=== PATIENT | female | born 1985 | race Caucasian/White ===

== ENCOUNTER 2020-02-13 11:16 | Emergency (ER) | payer OTHER, SELFPAY ==
[2020-02-13 11:24] VITALS: BP 105/67; PULSE 96; RESP 16; TEMP 37.2
--- NOTE | 2020-02-13 11:28 | ED.URI ---
HPI - URI/Sore Throat General Chief Complaint: Upper Respiratory Infection Stated Complaint: COLD SYMPTOMS Time Seen by Provider: 02/13/20 11:28 Source: patient and RN notes reviewed History of Present Illness HPI Narrative: Patient is a 34-year-old female who presents the urgent care with complaints of upper respiratory symptoms. Patient states on Monday she woke up with a runny nose, cough, congestion. Patient states that everyone in the house have like symptoms and they have all been treating with allergy medication. Patient states that everyone else seems to be improving except her. However patient was also recently diagnosed with thyroid cancer and is supposed to have her thyroid removed on the . Therefore, patient's physician suggested she be tested for COVID for rule out prior to surgery. Patient also reports of low-grade fevers, intermittent shortness of breath, and body aches. Patient denies of any known contact with coronavirus and states that she has been wearing her mask in public. Patient also works from home. No other acute complaints. No acute distress noted. Patient read the plan of care. Related Data Home Medications Medication Instructions Recorded Confirmed sertraline 100 mg tablet 100 mg PO DAILY 06/07/19 Allergies Allergy/AdvReac Type Severity Reaction Status Date / Time amoxicillin Allergy Unknown gets yeast Verified 02/13/20 11:29 infections erythromycin base Allergy Unknown Nausea Verified 02/13/20 11:29 Review of Systems Review of Systems: Narrative: CONSTITUTIONAL: Reports of fever and sweats EYES: Denies visual changes, redness, or discharge. ENT: Reports of sore throat, congestion, rhinorrhea CARDIOVASCULAR: Denies chest pain, palpitations, or edema. RESPIRATORY: Reports of nonproductive cough with intermittent dyspnea GASTROINTESTINAL: Denies abdominal pain, nausea, vomiting, or diarrhea. GENITOURINARY: Denies dysuria or hematuria. SKIN: Denies rash or itching. MUSCULOSKELETAL: Denies back pain, joint pain; reports of body aches NEUROLOGIC: Denies headache, numbness, or weakness. All other systems reviewed are negative, except as documented in HPI. [facility] Past Medical History Medical History (Updated 02/13/20 @ 11:50 by SRIRAM Herman) Depression Hemorrhoids History of Nontoxic multinodular goiter Ovarian cyst Thyroid nodule Thyrotoxicosis with diffuse goiter without thyrotoxic crisis or storm Surgical History Surgical History H/O adenoidectomy H/O section H/O myringotomy Hx of tonsillectomy Social History Social History Smoking status: Never smoker Smoking end date: 08/07/04 Alcohol intake: never Substance use type: marijuana Comments At the time of my signature, I reviewed and agree with the nursing past medical, surgical, social, and family history. There is no relevant family history pertinent to the patient complaint. Exam Narrative: Exam Narrative: GENERAL: This is a well-nourished, well-developed patient, appears fatigued HEAD: normocephalic, atraumatic. EYES: PERRL. Sclera clear/white. Vision is grossly intact. EARS: External ears normal, auditory canals clear and without drainage, TMs normal without perforation. Hearing grossly intact. NOSE: External nose normal with no obvious nasal discharge, nares without redness, clear rhinorrhea. THROAT: Mucous membranes moist, mild erythema noted posterior oropharynx with mild postnasal drainage; absent tonsils NECK: Neck supple, CARDIOVASCULAR: Regular rate and rhythm without murmurs, gallops, or rubs. RESPIRATORY: Clear to auscultation. Breath sounds equal bilaterally. No wheezes, rales, or rhonchi. SKIN: warm, intact with no suspicious lesions or rash, good texture and turgor. NEURO: awake, alert, and oriented to person, place and time. There were no obvious focal neurologic
== END 2020-02-13 11:58 | disposition home or self-care (01) ==
PROVIDERS: Emergency Provider Nurse Practitioner Family; PCP Family Medicine
DX: R05 Cough (principal); J06.9 Acute upper respiratory infection, unspecified; Z20.828 Contact with and (suspected) exposure to other viral communicable diseases; F32.9 Major depressive disorder, single episode, unspecified
CPT/HCPCS: 87081; 87880; 99213; G0463

== ENCOUNTER → 2020-02-19 14:47 | Outpatient (CLI) | payer OTHER, SELFPAY ==
--- NOTE | ~2020-02-19 | XR_ITS ---
EXAMINATION: XR chest 2V DATE: 02/19/2020 14:59 INDICATION: Cough. TECHNIQUE: Frontal and lateral views of the chest were obtained. COMPARISON: CT abdomen and pelvis 10/31/2014 FINDINGS: The chest demonstrates clear lungs without pneumonia, pleural effusion, or pneumothorax. Th e heart size is normal. IMPRESSION: 1. No acute cardiopulmonary disease. Reviewed, dictated and finalized at location A.
== END ==
PROVIDERS: PCP Family Medicine; Visit Provider Family Medicine
DX: R05 Cough (principal)
CPT/HCPCS: 71046

== ENCOUNTER 2020-06-23 06:53 | Outpatient (NON) | payer OTHER, SELFPAY ==
[2020-06-24 14:04] LABS: SARS-CoV-2 RNA PCR Negative
== END 2020-06-23 06:54 ==
LOC: ANHCOVIDDT 07:04
PROVIDERS: PCP Family Medicine; Visit Provider Family Medicine
DX: Z20.828 Contact with and (suspected) exposure to other viral communicable diseases (principal)
CPT/HCPCS: 87635; C9803; U0003

== ENCOUNTER → 2020-10-14 08:17 | Outpatient (CLI) | payer OTHER, SELFPAY ==
[2020-10-15 16:27] LABS: SARS-CoV-2 RNA PCR Negative
== END ==
PROVIDERS: PCP Family Medicine; Visit Provider Family Medicine
DX: Z20.822 Contact with and (suspected) exposure to COVID-19 (principal); J34.89 Other specified disorders of nose and nasal sinuses; R05 Cough; R53.83 Other fatigue
CPT/HCPCS: C9803; U0003; U0005

== ENCOUNTER → 2021-03-23 13:24 | Outpatient (CLI) | payer OTHER, SELFPAY ==
--- NOTE | ~2021-03-23 | MM_ITS ---
EXAMINATION: MM screening pedro BI w june HISTORY: Screening mammogram, family history of breast cancer in her mother. TECHNIQUE: Craniocaudal and mediolateral oblique 3-D tomosynthesis images were obtained and synthetic 2-D images were generated. CAD analysis was submitted and interpreted. COMPARISON: None, baseline BREAST PARENCHYMAL COMPOSITION: The breasts are heterogeneously dense, which may obscure small masses . FINDINGS: RIGHT BREAST: A focal asymmetry and mass with an appearance suggestive of an intramammary lymph node are present in the posterior third of the upper outer quadrant breast. LEFT BREAST: There is no evidence of suspicious mass, calcification, or architectural distortion to s uggest malignancy. IMPRESSION: 1. Right breast focal asymmetry and mass 2. Additional mammographic views and possible breast ultrasound are recommended to evaluate for malig jose and establish a baseline given that this is the first mammographic examination. BI-RADS Category 0: Incomplete: Needs additional imaging evaluation. Reviewed, dictated and finalized at location A. IMPRESSION: 1. Right breast focal asymmetry and mass 2. Additional mammographic views and possible breast ultrasound are recommended to evaluate for malignancy and establish a baseline given that this is the fir st mammographic examination. BI-RADS Category 0: Incomplete: Needs additional imaging evaluation.
== END ==
PROVIDERS: PCP Family Medicine; Visit Provider Family Medicine
DX: Z12.31 Encounter for screening mammogram for malignant neoplasm of breast (principal); R92.8 Other abnormal and inconclusive findings on diagnostic imaging of breast; Z80.3 Family history of malignant neoplasm of breast
CPT/HCPCS: 77063; 77067

== ENCOUNTER → 2021-04-20 07:34 | Outpatient (CLI) | payer OTHER, SELFPAY ==
--- NOTE | ~2021-04-20 | MMUS_ITS ---
EXAMINATION: MM diagnostic pedro RT w june, US breast RT complete HISTORY: Follow-up right breast mass TECHNIQUE: Additional 3-D tomosynthesis images of the right breast were performed and synthetic 2-D i mages were generated. CAD analysis was submitted and interpreted. High resolution complete a breast u ltrasound was performed. COMPARISON: Comparison to multiple prior studies sequentially, with oldest reviewed study dated 03/23. BREAST PARENCHYMAL COMPOSITION: Breast composed of scattered areas of fibroglandular density. FINDINGS: MAMMOGRAPHIC FINDINGS: There is a new lobulated mass in the mid outer quadrant of the right breast, middle third. There are benign right breast calcifications. No suspicious architectural distortion. ULTRASOUND: Complete right breast ultrasound: At 8:00, 5 cm from the nipple, there is an 8 mm intramammary lymph node. At 6:00, 2 cm from the nipple, there is a 3 mm cyst. IMPRESSION: 1. No evidence for malignancy in the right breast. Benign findings. 2. Routine yearly screening mammogram and regular clinical breast examination are recommended. BI-RADS Category 2: Benign finding(s). Reviewed, dictated and finalized at location A. IMPRESSION: 1. No evidence for malignancy in the right breast. Benign findings. 2. Routine yearly screening mammogram and regular clinical breast examination a re recommended. BI-RADS Category 2: Benign finding(s).
== END ==
PROVIDERS: PCP Family Medicine; Visit Provider Family Medicine
DX: N60.01 Solitary cyst of right breast (principal)
CPT/HCPCS: 76641; 77061; 77065; G0279

== ENCOUNTER → 2021-08-21 02:22 | Outpatient (CLI) | payer OTHER, SELFPAY ==
[2021-08-21 18:13] LABS: Influenza A QL RT-PCR Negative (Negative); Influenza B QL RT-PCR Negative (Negative); SARS-CoV-2 RNA PCR Negative
== END ==
PROVIDERS: PCP Family Medicine; Visit Provider Family Medicine
DX: R05.9 Cough, unspecified (principal); R68.83 Chills (without fever); Z20.822 Contact with and (suspected) exposure to COVID-19
CPT/HCPCS: 87502; 87804; C9803; U0003; U0005

== ENCOUNTER 2021-11-11 09:33 | Outpatient (CLI) | payer OTHER, SELFPAY ==
--- NOTE | ~2021-11-11 | US_ITS ---
EXAMINATION: US pelvic complete w TV DATE: 11/11/2021 11:00 INDICATION: Hypertrophy of the uterus Comparison:No prior studies for comparison. TECHNIQUE: Multiple transabdominal and endovaginal sonographic images of the pelvis performed. FINDINGS: The uterus measures 7.7 x 4.6 x 3.5 cm. The endometrial complex measures 10 mm. The right ovary measures 3 x 2.5 x 1.9 and the left ovary measures 2.2 x 2.1 x 2.1 cm. There are sma ll follicles in each ovary. Normal doppler signal in both ovaries. There is no free fluid in the pelvis. There are no abnormal masses seen on either side. IMPRESSION: 1. Unremarkable pelvic ultrasound. Reviewed, dictated and finalized at location A.
== END 2021-11-11 09:34 | disposition home or self-care (01) ==
PROVIDERS: PCP Family Medicine; Visit Provider Obstetrics & Gynecology
DX: N85.2 Hypertrophy of uterus (principal)
CPT/HCPCS: 76830; 76856

== ENCOUNTER 2022-07-05 09:23 | Outpatient (CLI) | payer OTHER, SELFPAY ==
--- NOTE | ~2022-07-05 | MM_ITS ---
EXAMINATION: MM screening pedro BI w june HISTORY: Screening mammogram, family history of breast cancer in her mother. TECHNIQUE: Craniocaudal and mediolateral oblique 3-D tomosynthesis images were obtained and synthetic 2-D images were generated. CAD analysis was submitted and interpreted. COMPARISON: 04/20/2021, 03/23/2021 BREAST PARENCHYMAL COMPOSITION: The breasts are heterogeneously dense, which may obscure small masses . FINDINGS: A stable mass in the upper outer quadrant of the right breast has the appearance of an intr amammary lymph node. No suspicious mass, calcification, or architectural distortion are identified in either breast to suggest malignancy. There has been no suspicious interval change. IMPRESSION: 1. No mammographic evidence of malignancy. 2. Recommend routine screening mammography beginning at age 40. BI-RADS Category 2: Benign finding(s). Reviewed, dictated and finalized at location A. [facility]
== END 2022-07-05 09:24 | disposition home or self-care (01) ==
LOC: ANHIMG 09:24
PROVIDERS: PCP Family Medicine; Visit Provider Obstetrics & Gynecology
DX: Z12.31 Encounter for screening mammogram for malignant neoplasm of breast (principal)
CPT/HCPCS: 77063; 77067

== ENCOUNTER 2023-02-26 08:07 | Emergency (ER) | payer OTHER, SELFPAY ==
[2023-02-26 08:13] VITALS: BP 112/58; PULSE 73; RESP 16; TEMP 36.3; O2SAT 100
--- NOTE | 2023-02-26 08:16 | ED.URI ---
HPI - URI/Sore Throat General Chief Complaint: Upper Respiratory Infection Stated Complaint: Ear Pain/Sore Throat Time Seen by Provider: 02/26/23 08:19 Source: patient, RN notes reviewed and old records reviewed Mode of arrival: ambulatory Limitations: no limitations History of Present Illness HPI Narrative: 38 year old female who presents to [facility] care with complaints of sore throat and ear pain which initially started yesterday. Patient reports that her son tested positive for COVID on and she did home test on herself this morning which was negative. Patient reports that she has been COVID and flu vaccinated.Patient reports that she has been taking some Ibuprofen for her discomfort. Patient reports no known fevers, chills or sweats or any body aches. MD elicited complaint: cough, sore throat and other (ear pain) Pertinent past history: tympanostony tubes and other (Tonsillectomy and Adenoidectomy) Onset (ago): day(s) (2 of symptoms.) Pain scale (0-10): 6 Able to tolerate fluids by mouth: Yes Exacerbating factors: swallowing Treatments prior to arrival: ibuprofen Related Data Home Medications Medication Instructions Recorded Confirmed docosahexaenoic acid 200 mg mg PO 09/27/21 01/10/23 capsule ( DHA) levothyroxine 112 mcg tablet 112 mcg PO DAILY 03/29/22 01/10/23 (Synthroid) multivitamin [id number] tablet PO 02/26/23 fumarate 18 mg-vitamin K 25 mcg tablet Allergies Allergy/AdvReac Type Severity Reaction Status Date / Time erythromycin base AdvReac Mild Nausea Verified 01/10/23 16:16 amoxicillin AdvReac Unknown gets yeast Verified 01/10/23 16:16 infections Review of Systems Review of Systems: CONSTITUTIONAL: Denies malaise, chills, sweats, or fever. EYES: Denies visual changes, redness, or discharge. ENT: Reports no noted rhinorrhea, congestion, sinus pain, positive for bilateral otalgia and sore throat with painful swallowing CARDIOVASCULAR: Denies chest pain, palpitations, or edema. RESPIRATORY: Reports no cough.? Denies dyspnea. GASTROINTESTINAL: Denies abdominal pain, nausea, vomiting, diarrhea SKIN: Denies rash or itching. MUSCULOSKELETAL: Denies myalgia. NEUROLOGIC: Denies headache. All systems reviewed & are unremarkable except as noted in HPI and below PMFSH Past Medical History Medical History Anxiety disorder Bronchitis Depression Hemorrhoids History of thyroid cancer History of Nontoxic multinodular goiter Ovarian cyst Thyroid nodule Thyrotoxicosis with diffuse goiter without thyrotoxic crisis or storm Surgical History Surgical History H/O adenoidectomy H/O section H/O myringotomy H/O thyroidectomy Hx of tonsillectomy Family History Family History Mother Family history of malignant neoplasm of breast in first degree relative Cerebrovascular accident Family history of mental disorder Family history of glaucoma Grandparent Diabetes mellitus Family history of hypercholesterolemia Hypertension Family history of malignant neoplasm of uterus Family history of cardiovascular disease Family history of malignant neoplasm Family history of Alzheimer's disease Social History Social History Smoking status: Never smoker Smoking end date: 08/07/04 Alcohol intake: never Substance use type: marijuana Comments At time of signature, agree with nursing past medical, surgical, social and family history. There is no relevant family history pertinent to the presenting complaint Exam Narrative: GENERAL: Well-appearing, well-nourished, and in no acute distress. HEAD: Normocephalic EYES: PERRLA, conjunctivae clear ENT: Nares clear, turbinates edematous and erythematous, clear discharge
== END 2023-02-26 08:42 | disposition home or self-care (01) ==
PROVIDERS: Emergency Provider Registered Nurse; PCP Family Medicine
DX: J02.0 Streptococcal pharyngitis (principal); E89.0 Postprocedural hypothyroidism; Z85.850 Personal history of malignant neoplasm of thyroid; F12.90 Cannabis use, unspecified, uncomplicated; Z87.891 Personal history of nicotine dependence
CPT/HCPCS: 87880; 99213; G0463

== ENCOUNTER 2023-11-02 07:12 | Outpatient (CLI) | payer OTHER, SELFPAY ==
--- NOTE | ~2023-11-02 | MM_ITS ---
EXAMINATION: MM screening pedro BI w june HISTORY: Screening mammogram TECHNIQUE: Craniocaudal, rotated lateral craniocaudal and mediolateral oblique 3-D tomosynthesis imag es were obtained and synthetic 2-D images were generated. CAD analysis was submitted and interpreted. COMPARISON: 07/05/2022 bilateral screening mammogram 04/20/2021 diagnostic right mammogram and complete right breast ultrasound examination 03/23/2021 bilateral screening mammogram BREAST PARENCHYMAL COMPOSITION: The breasts are heterogeneously dense, which may obscure small masses . FINDINGS: Stable benign-appearing appearing intramammary lymph node. Posterior outer mid right breast is again noted. Occasional calcified microhematomas. There is no evidence of suspicious mass, calcif ication, or architectural distortion to suggest malignancy in either breast. There has been no suspic ious interval change. IMPRESSION: 1. No mammographic evidence of malignancy. 2. Recommend routine screening mammography in one year. BI-RADS Category 2: Benign finding(s). Reviewed, dictated and finalized at location A.
== END 2023-11-02 07:13 | disposition home or self-care (01) ==
PROVIDERS: PCP Family Medicine; Visit Provider Obstetrics & Gynecology
DX: Z12.31 Encounter for screening mammogram for malignant neoplasm of breast (principal)
CPT/HCPCS: 77063; 77067

== ENCOUNTER 2024-01-15 10:54 | Outpatient (CLI) | payer OTHER, SELFPAY ==
--- NOTE | ~2024-01-15 | US_ITS ---
Pelvic ultrasound. Clinical History: Menorrhagia Technique: Realtime transabdominal and transvaginal scanning of the pelvis was performed. Color flow Doppler and Doppler spectral analysis were performed. Findings: The uterus is anteverted. The endometrial stripe has a thickness of 8 mm. No focal mass is identified. The right ovary measures 1.9 x 3.0 x 1.9 cm. No significant right ovarian or adnexal mass is seen. The left ovary measures 4.5 x 2.1 x 2.6 cm. Probable 2.2 cm complex left ovarian cyst, possibly corpu s luteal cyst. There is a small amount of free fluid in the cul de sac. Impression: 2.2 cm complex left ovarian cyst, possibly corpus luteal cyst. Small amount of free fluid in the pelvis, nonspecific. Reviewed, dictated and finalized at [facility]. Impression: 2.2 cm complex left ovarian cyst, possibly corpus luteal cyst. Small amount of free fluid in the pelvis, nonspecific.
== END 2024-01-15 10:55 ==
PROVIDERS: PCP Family Medicine; Visit Provider Nurse Practitioner Obstetrics & Gynecology
DX: N93.9 Abnormal uterine and vaginal bleeding, unspecified (principal); N83.202 Unspecified ovarian cyst, left side
CPT/HCPCS: 76830; 76856

== ENCOUNTER 2025-01-06 15:42 | Outpatient (CLI) | payer OTHER, SELFPAY ==
--- NOTE | ~2025-01-06 | MM_ITS ---
PROCEDURE: MM SCREENING RAJANI BI W ELLEN INDICATION: Asymptomatic, referred for screening mammogram COMPARISON: 11/02/2023 through 03/23/2021 TECHNIQUE: Digital breast tomosynthesis craniocaudal and mediolateral oblique views of Both breasts w ere obtained with computer-aided detection to assist in interpretation of the study. FINDINGS: The breasts are heterogeneously dense, which may obscure small masses. No focal dominant mass, architectural distortion, or suspicious microcalcifications are identified. There are no features to suggest malignancy. IMPRESSION: No evidence of malignancy in the breast. Recommend continued screening mammography BI-RADS 1, NEGATIVE Reviewed, dictated and finalized at location B.
--- OUTSIDE RECORDS SUMMARY | 2025-01-06 15:45 | XMS_ITS | Referral Summary ---
Author Organization [facility] Address [address] [place] [address] Care Team Providers Care Career Placement Services Counselor Name Role Phone Kecia Ruiz MD Primary Care Provider + Encounters Date Type Department Care Team Description 11/13/2024 10:10 AM CDT - 11/13/2024 11:59 PM CDT Hospital Encounter [address] [address] Papillary thyroid carcinoma (HCC) Discharge Disposition: Discharge to home or self care 11/13/2024 10:15 AM CDT Lab [facility] Endocrinology Metabolism and Lipid [address] [place] [address] [place] [address] Postoperative hypothyroidism 11/13/2024 9:00 AM CDT Office Visit [facility] Endocrinology Metabolism and Lipid [address] [place] [address] [place] [address] Yesica Moe MD Postoperative hypothyroidism (Primary Dx); Papillary thyroid carcinoma (HCC); Takes dietary supplements from Last 3 Months Allergies No known active allergies Medications sertraline (ZOLOFT) 100 mg tabletIndications:A nxiety with Depression Take 1 tablet (100 mg total) by mouth nightly Active sertraline (ZOLOFT) 50 mg tablet 2 Active Synthroid 125 mcg tabletIndications:P ostoperative hypothyroidism TAKE 1 TABLET (125 MCG TOTAL) BY MOUTH DAILY 90 tablet 3 4 02/28/20 25 Active Active Problems Problem Noted Date Diagnosed Date Takes dietary supplements 11/13/2024 Assessment & Plan (11/13/2024 11:29 AM CDT): Had long discussion about how supplements aren't FDA regulated, making them unpredictable. Patient will send lab reports from before and after supplements for my review. Advised that she does not need iodine supplement since she does not have a thyroid gland. Papillary thyroid carcinoma 01/20/2021 Assessment & Plan (02/28/2023 4:20 PM CDT): The patient is status post removal of the thyroid in March of 2020, categorized as low/intermediate risk of recurrence. The significance of her lymphatic without vascular invasion and no lymph node metastases is a bit unclear, but post- operative Tg 0.4 so opted against [place]. Follow up was 1.6. Post-operative ultrasound showed bilateral remnants but no suspicious nodules or LNs. Target TSH 0.5-2.0. Currently taking Synthroid 112 mcg, clinically euthyroid. Will recheck labs today. Ultrasound requested. Postoperative hypothyroidism 01/20/2021 Assessment & Plan (02/28/2023 4:19 PM CDT): Currently on Synthroid 112 mcg. Screening for malignant neoplasm of colon 2017 Overview (07/11/2018): Added automatically from request for surgery [id number] Hemorrhoids 06/26/2018 Rectal bleeding 06/26/2018 Multinodular goiter 06/13/2018 Assessment & Plan (12/26/2018 3:36 PM CDT): Ultrasound was repeated in clinic today, with two large right sided nodules noted (mid and isthmus), both of which have increased in size from previous (see separate ultrasound report). These nodules both have a significant fluid component, which is likely the reason for the increase in size. Both have been biopsied as benign in the past, and with the large cystic component, would not re-biopsy at this time. Counseled her that these may continue to grow and could ultimately cause compressive symptoms. If these develop, will refer her for surgery. Will continue to monitor with annual ultrasound in the meantime. She may eventually need FNA of a subcentimeter solid hypoechoic right superior nodule if it continues to grow. Will also check thyroid function today. Assessment & Plan (06/13/2018 10:50 AM BUFFING MACHINE TENDER): Ultrasound was performed in clinic today. The gland was heterogeneous. Small nodule on left, hypoechoic with greatest dimension 0.3 cm. On right, there were 2 discrete nodules. Right superior nodule was hypoechoic, solid, with peripheral calcification and measured 0.9 x 0.6 x 0.5 cm. Right mid nodule was mixed cystic and solid measuring 3.0 x 1.3 x 2.3 cm. Isthmus nodule was mixed cystic and solid measuring 2.1 x 0.9 x 2.2 cm. The largest nodules that had grown 50% over 6 months have a large cystic component but otherwise have no suspicious features. The growth is likely due to both the cystic component as well as changes during . Would continue to follow with ultrasound in 6 months here. She may eventually need FNA of the 1 cm solid hypoechoic right nodule if it continues to grow. 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 Anal fissure 08/22/2014 Social History Tobacco Use Types Packs/Day Years Used Date Smoking Tobacco: Never Smokeless Tobacco: Never Tobacco Cessation:Counseling Given: Not Answered Alcohol Use Standard Drinks/Week Comments Yes 4 (1 standard drink = 0.6 oz pur e alcohol) Comments No Sex and Gender Information Value Date Recorded Sex Assigned at Not on file Legal Sex Female 8:53 PM BUFFING MACHINE TENDER Gender Identity Female 01/15/2020 5:52 PM CDT Sexual Orientation Straight 01/15/2020 5: 52 PM CDT Last Filed Vital Signs Vital Sign Reading Time Taken Comments Blood Pressure 94/63 11/13/2024 9:15 AM CDT Pulse 63 11/13/2024 9:15 AM CDT Temperature 36.8 C (98.2 F) 11/13/2024 9:15 AM CDT Respiratory Rate 20 09/27/2024 4:47 PM BUFFING MACHINE TENDER Oxygen Saturation 99% 09/27/2024 4:47 PM BUFFING MACHINE TENDER Inhaled Oxygen Concentration - - Weight 72.8 kg (160 lb 6.4 oz) 11/13/2024 9:15 A M CDT Height 167.6 cm (5' 6) 11/13/2024 9:15 AM CDT Body Mass Index 25.89 11/13/2024 9:15 AM CDT Plan of Treatment Not on file Procedures Procedure Name Priority Date/Time Associated Diagnosis Comments REFLEX THYROGLOBULIN, TUMOR MARKER, IA, S Routine 11/13/2024 10:10 AM CDT THYROGLOBULIN REFLEX TO MS OR IA Routine 11/13/2024 10:10 AM CDT Papillary thyroid carcinoma (HCC) TSH Routine 11/13/2024 10:10 AM CDT Postoperative hypothyroidism T4, FREE Routine 11/13/2024 10:10 AM CDT Postoperative hypothyroidism from Last 3 Months Results * Reflex thyroglobulin, tumor marker, IA, S (11/13/2024 10:10 AM CDT) Thyroglobulin, Tumor Marker 1.4 < or = 33 ng/mL [place] ref Lab Thyroglobulin interp See Footnote [facility] Comment: Thyroglobulin (Tg) reference intervals are for patients with an intact thyroid and not for patients who have had surgery for thyroid cancer. Tg reference intervals in patients that have undergone thyroidectomy or any treatment for follicular thyroid cancer are dependent on the residual mass of the thyroid tissue after surgery. Tg results, regardless of concentration, should not be interpreted as absolute evidence for the presence or absence of papillary or follicular thyroid cancer. This result needs to be interpreted in the context of the clinical evaluation. ADDITIONAL INFORMATION PLEASE NOTE: The given cutoff of <1.8 IU/mL is for the detection of potential thyroglobulin antibody (TgAb) interference in thyroglobulin immunoassays. A thyroglobulin antibody (TgAb) reference cutoff of <4.0 IU/mL may be more suitable for the evaluation of autoimmune thyroiditis. The thyroglobulin and thyroglobulin antibody testing methods are immunoenzymatic assays manufactured by [employer] and performed on the kontoblick DXI 800. Values obtained from different assay methods or kits may be different and cannot be used interchangeably. The results cannot be interpreted as absolute evidence for the presence or absence of malignant disease. Test Performed by: [place] [address] Seasonal Tax Preparer: Joana Corea Ph.D.; CLIA# [id number] Blood 11/13/2024 10:1 0 AM CDT 11/13/2024 2:29 PM CDT us Yesica Moe MD LAB BLOOD ORDERABLES Final Result Performing Organization Address [facility] de Phone Number [facility] Department [place] [employer] [place] [address] [place] [facility] * Thyroglobulin reflex to MS or IA (11/13/2024 10:10 AM CDT) Anti-thyroglobulin <1.8 <1.8 IUnits/mL [facility] Comment: Thyroglobulin Antibody < 1.8 IU/mL. Thyroglobulin performed by Immunoassay to follow. Test Performed by: [place] [address] Seasonal Tax Preparer: Joana Corea Ph.D.; CLIA# [id number] Blood 11/13/2024 10:1 0 AM CDT 11/13/2024 2:29 PM CDT us Yesica Moe MD LAB BLOOD ORDERABLES Final Result Performing Organization Address [facility] Co de Phone Number [facility] Department [place] [employer] [place] [address] [facility] * TSH (11/13/2024 10:10 AM CDT) TSH (Thyrotropin) 0.91 0.27 - 4.20 uIU/mL [facility] Blood 11/13/2024 10:1 0 AM CDT 11/13/2024 11:03 AM CDT Yesica Moe MD LAB BLOOD ORDERABLES Final Result [facility] * T4, free (11/13/2024 10:10 AM CDT) Free T4 1.48 0.80 - 1.80 ng/dL [facility] Blood 11/13/2024 10:1 0 AM CDT 11/13/2024 11:03 AM CDT Yesica Moe MD LAB BLOOD ORDERABLES Final Result [facility] from Last 3 Months Insurance [facility] CHOICE PLUS [facility] HMO/PPO Address: [facility] [address] [place] [address] [facility] CHO[facility] HMO/PPO Address: [address] [address] [place] [address] [facility] CHO[facility] HMO/PPO Address: [address] [address] [place] [address] Advance Directives For more information, please contact: [phone] * Full Code (Latest Code Status on File) Date Activated Date Inactivated Comments 03/11/2020 4:23 PM 03/12/2020 2:30 PM Care Teams Career Placement Services Counselor Relationship Specialty Start Date End Date Kecia Ruiz MD PCP - General Family Medicine 05/08/18
--- OUTSIDE RECORDS SUMMARY | 2025-01-06 15:45 | XMS_ITS | Clinical Summary ---
Author Organization [facility] Address [address] [place] [address] Care Team Providers Care Rivet Heater Name Role Phone Kecia Ruiz MD Primary Care Provider + Allergies No known active allergies Medications sertraline (ZOLOFT) 100 mg tabletIndications:A nxiety with Depression Take 1 tablet (100 mg total) by mouth nightly Active sertraline (ZOLOFT) 50 mg tablet 2 Active Synthroid 125 mcg tabletIndications:P ostoperative hypothyroidism TAKE 1 TABLET (125 MCG TOTAL) BY MOUTH DAILY 90 tablet 3 4 02/28/20 Active Active Problems Problem Noted Date Diagnosed [...] (07/11/2018): Added automatically from request for surgery [id number] Hemorrhoids 06/26/2018 Rectal bleeding 06/26/2018 Multinodular goiter [...] today. Assessment & Plan (06/13/2018 10:50 AM VEHICLE WASHER): Ultrasound was performed in clinic today. The [...] 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 Anal fissure 08/22/2014 Encounters Date Type Department Care Team Description 11/13/2024 10:15 AM CDT Lab [facility] Endocrinology Metabolism and Lipid [address] [place] [address] [place] [address] Postoperative hypothyroidism 11/13/2024 10:10 AM CDT - 11/13/2024 11:59 PM CDT Hospital Encounter [facility] [address] [place] [address] Papillary thyroid carcinoma (HCC) Discharge Disposition: Discharge to home or self care 11/13/2024 9:00 AM CDT Office Visit [facility] Endocrinology Metabolism and Lipid [address] [place] [address] [place] [address] Yesica Moe MD Postoperative hypothyroidism (Primary Dx); Papillary thyroid carcinoma (HCC); Takes dietary supplements from Last 3 Months Surgical History Surgery Date Site/Laterality Comments SECTION 08/07/2015 - 08/06/2016 N/A HEMORRHOID SURGERY 08/07/2014 - 08/06/2015 N/A TONSILLECTOMY AND ADENOIDECTOMY TYMPANOSTOMY TUBE PLACEMENT NASAL SINUS SURGERY sinus window THYROIDECTOMY Medical History Medical History Date Comments Blood in stool Thyroid cancer (HCC) Asthma URI (upper respiratory infection) started 02/12/2020 cough, low grade fever, malaise, sore throat Anxiety Family History Medical History Relation Name Comments Skin cancer Father Heart disease Maternal Grandfather Family history of cardiac disorder - (Added by TW Conv) Breast cancer Mother Stroke Mother Family history of cerebrovascular accident - (Added by TW Conv) Heart disease Paternal Grandfather Family history of cardiac disorder - (Added by TW Conv) Uterine cancer Paternal Grandmother age u nknown Anesthesia problems Neg Hx Relation Name Status Comments Father Maternal Grandfather Mother Paternal Grandfather Paternal Grandmother Social History Tobacco Use Types Packs/Day Years Used Date Smoking Tobacco: Never Smokeless Tobacco: Never Tobacco Cessation:Counseling Given: Not Answered Alcohol Use Standard Drinks/Week Comments Yes 4 (1 standard drink = 0.6 oz pur e alcohol) Comments No Sex and Gender Information Value Date Recorded Sex Assigned at Not on file Legal Sex Female 8:53 PM VEHICLE WASHER Gender Identity Female 01/15/2020 5:52 PM CDT Sexual Orientation Straight 01/15/2020 5: 52 PM CDT Obstetrics History Last Filed Vital Signs Vital Sign Reading Time Taken Comments Blood Pressure 94/63 11/13/2024 9:15 AM CDT Pulse 63 11/13/2024 9:15 AM CDT Temperature 36.8 C (98.2 F) 11/13/2024 9:15 AM CDT Respiratory Rate 20 09/27/2024 4:47 PM VEHICLE WASHER Oxygen Saturation 99% 09/27/2024 4:47 PM VEHICLE WASHER Inhaled Oxygen Concentration - - Weight 72.8 kg (160 lb 6.4 oz) 11/13/2024 9:15 A M CDT Height 167.6 cm (5' 6) 11/13/2024 9:15 AM CDT Body Mass Index 25.89 11/13/2024 9:15 AM CDT Plan of Treatment Health Maintenance Due Date Last Done Comments Cervical Cancer Screening 1985 Depression Screening 1985 Hepatitis C Screening 1985 Varicella Vaccines (1 of 2 - 13+ 2-dose series) 1998 Hepatitis B Screening 2003 Regular Well Visit/Exam 18-64 2003 Influenza Vaccine (Season Ended) 2025 05/27/2021, 05/14/2019, 05/10/2019, Additional history exists DTaP/Tdap/Td Vaccine (2 - Td or Tdap) 12/28/2027 12/27/2017 HPV Vaccines Aged Out No longer eligi ble based on patient's age to complete this topic Pneumococcal vaccine <65 Aged Out No longer eligible based on patient's age to complete this topic Procedures Procedure Name Priority Date/Time Associated Diagnosis [...] Marker 1.4 < or = 33 ng/mL [place] ref [facility] Thyroglobulin interp See Footnote [facility] Comment: Thyroglobulin (Tg) reference intervals are for [...] testing methods are immunoenzymatic assays manufactured by [employer] and performed on the expressor software DXI 800. Values obtained from different assay methods or kits may be different and cannot be used interchangeably. The results cannot be interpreted as absolute evidence for the presence or absence of malignant disease. Test Performed by: [facility] [id number] [place] [address] Counseling Director: Joana Corea Ph.D.; CLIA# [id number] Blood 11/13/2024 10:1 0 AM CDT 11/13/2024 2:29 PM CDT Yesica Moe MD LAB BLOOD ORDERABLES Final Result [facility] [place] [address] [place] ref [facility] * Thyroglobulin reflex to MS or IA (11/13/2024 10:10 AM CDT) Anti-thyroglobulin <1.8 <1.8 IUnits/mL [place] [facility] Comment: Thyroglobulin Antibody < 1.8 IU/mL. Thyroglobulin performed by Immunoassay to follow. Test Performed by: [facility] [address] [place] [address] Counseling Director: Joana Corea Ph.D.; CLIA# [id number] Blood 11/13/2024 10:1 0 AM CDT 11/13/2024 2:29 PM CDT us Yesica Moe MD LAB BLOOD ORDERABLES Final Result [facility] [place] [address] [place] ref [facility] * TSH (11/13/2024 10:10 AM CDT) Pathologist [facility] TSH (Thyrotropin) 0.91 0.27 - 4.20 uIU/mL [facility] Blood 11/13/2024 10:1 0 AM CDT 11/13/2024 11:03 AM CDT us Yesica Moe MD LAB BLOOD ORDERABLES Final Result [facility] * T4, free (11/13/2024 10:10 AM CDT) Free T4 1.48 0.80 - 1.80 ng/dL [facility] Blood 11/13/2024 10:1 0 AM CDT 11/13/2024 11:03 AM CDT us Yesica Moe MD LAB BLOOD ORDERABLES Final Result [facility] from Last 3 Months Insurance [facility] H[facility]/PPO Address: [address] [place] [address] [facility] H[facility]/PPO Address: [address] [place] [address] [facility] HMO/PPO Address: [facility] [id number] [place] [address] Advance Directives For more information, please contact: [phone] * Full Code (Latest Code Status on File) Date Activated Date Inactivated Comments 03/11/2020 4:23 PM 03/12/2020 2:30 PM Care Teams Rivet Heater Relationship Specialty Start Date End Date Kecia Ruiz MD PCP - General Family Medicine 05/08/18
== END 2025-01-06 15:43 | disposition home or self-care (01) ==
PROVIDERS: PCP Family Medicine; Visit Provider Obstetrics & Gynecology
DX: Z12.31 Encounter for screening mammogram for malignant neoplasm of breast (principal)
CPT/HCPCS: 77063; 77067

== ENCOUNTER 2025-01-10 14:44 | Emergency (ER) | payer OTHER, SELFPAY ==
--- NOTE | ~2025-01-10 | XR_ITS ---
EXAMINATION: XR chest 2V 01/10/2025 15:14 INDICATION: Chest pain PROCEDURE: 2 view chest COMPARISON: 02/19/2020 FINDINGS: The lungs are clear. The cardiomediastinal silhouette is within normal limits. There are no pleural effusions. There is no pneumothorax suspected. IMPRESSION: 1: NO ACUTE CARDIOPULMONARY DISEASE. Reviewed, dictated and finalized at location A.
--- NOTE | 2025-01-10 14:45 | ECG_ITS ---
Test Date: 2025-01-10 14:50:55 Measurements Intervals [place] Rate: 73 P: 54 MI: 136 QRS: 30 QRSD: 89 T: 35 QT: 370 QTc: 409 Interpretive Statements SINUS RHYTHM BASELINE ARTIFACT- II, III, AVR, AVL, AVF, V3-V6 NORMAL ECG No previous ECG available for comparison Electronically Signed On 01-10-2025 16:42:26 CDT by Daniel Pritchett D.O.
--- OUTSIDE RECORDS SUMMARY | 2025-01-10 14:46 | XMS_ITS | Referral Summary ---
Author Organization [facility] Address [address] [place] [address] Care Team Providers Care Studio Model Name Role Phone Kecia Ruiz MD Primary Care Provider + Encounters Date Type Department Care Team Description 11/13/2024 10:10 AM CDT - 11/13/2024 11:59 PM CDT Hospital Encounter [address] [address] Papillary thyroid carcinoma (HCC) Discharge Disposition: Discharge to home or self care 11/13/2024 10:15 AM CDT Lab [facility] Endocrinology Metabolism and Lipid [address] [place] [address] [place] [address] Postoperative hypothyroidism 11/13/2024 9:00 AM CDT Office Visit [facility] Endocrinology Metabolism and Lipid [address] [place] [address] [place] [address] Yesica Moe MD Postoperative hypothyroidism (Primary Dx); [...] (07/11/2018): Added automatically from request for surgery [id number] Hemorrhoids 06/26/2018 Rectal bleeding 06/26/2018 Multinodular goiter [...] today. Assessment & Plan (06/13/2018 10:50 AM WELDING PROCESS ENGINEER): Ultrasound was performed in clinic today. The [...] on file Legal Sex Female 8:53 PM WELDING PROCESS ENGINEER Gender Identity Female 01/15/2020 5:52 PM CDT Sexual Orientation Straight 01/15/2020 5: 52 PM CDT Last Filed Vital Signs Vital Sign Reading Time Taken Comments Blood Pressure 94/63 11/13/2024 9:15 AM CDT Pulse 63 11/13/2024 9:15 AM CDT Temperature 36.8 C (98.2 F) 11/13/2024 9:15 AM CDT Respiratory Rate 20 09/27/2024 4:47 PM WELDING PROCESS ENGINEER Oxygen Saturation 99% 09/27/2024 4:47 PM WELDING PROCESS ENGINEER Inhaled Oxygen Concentration - - Weight 72.8 [...] Marker 1.4 < or = 33 ng/mL [place] ref Lab Thyroglobulin interp See Footnote [facility] Comment: Thyroglobulin (Tg) reference intervals are for [...] testing methods are immunoenzymatic assays manufactured by [employer] and performed on the [employer] DXI 800. Values obtained from different assay methods or kits may be different and cannot be used interchangeably. The results cannot be interpreted as absolute evidence for the presence or absence of malignant disease. Test Performed by: [place] [address] Key Filer: Joana Corea Ph.D.; CLIA# [id number] Blood 11/13/2024 10:1 0 AM CDT 11/13/2024 2:29 PM CDT us Yesica Moe MD LAB BLOOD ORDERABLES Final Result Performing Organization Address [facility] de Phone Number [facility] [place] [address] [place] [facility] * Thyroglobulin reflex to MS or IA (11/13/2024 10:10 AM CDT) Anti-thyroglobulin <1.8 <1.8 IUnits/mL [place] [facility] Comment: Thyroglobulin Antibody < 1.8 IU/mL. Thyroglobulin performed by Immunoassay to follow. Test Performed by: [place] [address] Key Filer: Joana Corea Ph.D.; CLIA# [id number] Blood 11/13/2024 10:1 0 AM CDT 11/13/2024 2:29 PM CDT us Yesica Moe MD LAB BLOOD ORDERABLES Final Result Performing Organization Address [facility] Co de Phone Number [facility] [place] [address] [place] ref [facility] * TSH (11/13/2024 10:10 [...] [facility] from Last 3 Months Insurance [facility] CHOICE PL[facility] HMO/PPO Address: [facility] [address] [place] [address] [facility] CHOICE PL[facility] HMO/PPO Address: [address] [address] [place] [address] [facility] CHOICE PLUS [facility] HMO/PPO Address: [address] [address] [place] [address] Advance Directives For more information, please contact: [phone] * Full Code (Latest Code Status on File) Date Activated Date Inactivated Comments 03/11/2020 4:23 PM 03/12/2020 2:30 PM Care Teams Studio Model Relationship Specialty Start Date End Date Kecia Ruiz MD PCP - General Family Medicine 05/08/18
--- OUTSIDE RECORDS SUMMARY | 2025-01-10 14:46 | XMS_ITS | Clinical Summary ---
Author Organization [facility] Address [address] [place] [address] Care Team Providers Care Chili Maker Name Role Phone Kecia Ruiz MD Primary [...] (07/11/2018): Added automatically from request for surgery [id number] Hemorrhoids 06/26/2018 Rectal bleeding 06/26/2018 Multinodular goiter [...] today. Assessment & Plan (06/13/2018 10:50 AM TREKKING GUIDE): Ultrasound was performed in clinic today. The [...] Team Description 11/13/2024 10:15 AM CDT Lab [facility] Endocrinology Metabolism and Lipid [address]th [place] [address] [place] [address] Postoperative hypothyroidism 11/13/2024 10:10 AM CDT - 11/13/2024 11:59 PM CDT Hospital Encounter [facility] [address] [place] [address] Papillary thyroid carcinoma (HCC) Discharge Disposition: Discharge to home or self care 11/13/2024 9:00 AM CDT Office Visit [facility] Endocrinology Metabolism and Lipid [address] 13[address] [place] [address] [place] [address] Yesica Moe MD Postoperative hypothyroidism (Primary Dx); [...] on file Legal Sex Female 8:53 PM TREKKING GUIDE Gender Identity Female 01/15/2020 5:52 PM CDT Sexual Orientation Straight 01/15/2020 5: 52 PM CDT Obstetrics History Last Filed Vital Signs Vital Sign Reading Time Taken Comments Blood Pressure 94/63 11/13/2024 9:15 AM CDT Pulse 63 11/13/2024 9:15 AM CDT Temperature 36.8 C (98.2 F) 11/13/2024 9:15 AM CDT Respiratory Rate 20 09/27/2024 4:47 PM TREKKING GUIDE Oxygen Saturation 99% 09/27/2024 4:47 PM TREKKING GUIDE Inhaled Oxygen Concentration - - Weight 72.8 [...] Marker 1.4 < or = 33 ng/mL [facility] Thyroglobulin interp See Footnote ALEJA [...] testing methods are immunoenzymatic assays manufactured by [employer] and performed on the Kivra DXI 800. Values obtained from different assay methods or kits may be different and cannot be used interchangeably. The results cannot be interpreted as absolute evidence for the presence or absence of malignant disease. Test Performed by: [facility] [place] [place] [address] Kinesiology Internship: Joana Corea Ph.D.; CLIA# [id number] Blood 11/13/2024 10:1 0 AM CDT 11/13/2024 2:29 PM CDT Yesica Moe MD LAB BLOOD ORDERABLES Final [facility] [place] [address] [facility] * Thyroglobulin reflex to MS or IA (11/13/2024 10:10 AM CDT) Anti-thyroglobulin <1.8 <1.8 IUnits/mL [facility] Comment: Thyroglobulin Antibody < 1.8 IU/mL. Thyroglobulin performed by Immunoassay to follow. Test Performed by: [facility] [address] [place] [address] Kinesiology Internship: Joana Corea Ph.D.; CLIA# [id number] Blood 11/13/2024 10:1 0 AM CDT 11/13/2024 2:29 PM CDT us Yesica Moe MD LAB BLOOD ORDERABLES Final Result [facility] [place] [address] [facility] * TSH (11/13/2024 10:10 AM CDT) Pathologist [facility] TSH (Thyrotropin) 0.91 0.27 - 4.20 uIU/mL [facility] Blood 11/13/2024 10:1 0 AM CDT 11/13/2024 11:03 AM CDT us Yesica Moe MD LAB BLOOD ORDERABLES Final Result [facility] CORE [facility] * T4, free (11/13/2024 10:10 AM CDT) Free T4 1.48 0.80 - 1.80 ng/dL [facility] Blood 11/13/2024 10:1 0 AM CDT 11/13/2024 11:03 AM CDT us Yesica Moe MD LAB BLOOD ORDERABLES Final Result [facility] from Last 3 Months Insurance [facility] PL[facility] PL[facility] Advance Directives For more information, please contact: [phone] * Full Code (Latest Code Status on File) Date Activated Date Inactivated Comments 03/11/2020 4:23 PM 03/12/2020 2:30 PM Care Teams Chili Maker Relationship Specialty Start Date End Date Kecia Ruiz MD PCP - General Family Medicine 05/08/18
[2025-01-10 15:11] LABS: Basophils Percent Auto 0.6 % (0.2-1.2); Eosinophils Absolute Auto 0.1 K/mm3 (0-0.3); Eosinophils Percent Auto 1.4 % (0-4.4); Hematocrit 42.8 % (37.0-47.0); Hemoglobin 14.3 g/dL (12.0-15.0); Immature Granulocyte Absolute 0.01 K/mm3 (0.00-0.031); Immature Granulocyte Percent A 0.2 % (0-0.5); Lymphocytes Absolute Auto 2.13 K/mm3 (0.9-3.2); Lymphocytes Percent Auto 33.2 % (18.3-44.2); Mean Corpuscular HGB Conc 33.4 g/dl (32-36); Mean Corpuscular Hemoglobin 29.1 pg (26-34); Mean Platelet Volume 10.4 fl (7.4-10.4); Monocytes Absolute Auto 0.5 K/mm3 (0.1-0.6); Neutrophils Absolute Auto 3.7 K/mm3 (1.3-6.7); Neutrophils Percent Auto 57.6 % (45.5-73.1); Platelet Count Result 237 k/mm3 (150-375); Red Blood Count 4.92 M/mm3 (4.2-5.4); Red Cell Distribution Width 13.2 % (11.5-14.5); White Blood Count 6.4 K/mm3 (4.5-10.0)
[2025-01-10 15:19] VITALS: BP 136/80; PULSE 66; PULSE 70; RESP 14; TEMP 36.4; O2SAT 99
--- NOTE | 2025-01-10 15:26 | ED_ITS ---
HPI - General Adult General Chief complaint: Chest Pain Stated complaint: CP Time Seen by Provider: 01/10/25 14:53 History of Present Illness HPI narrative: 39-year-old female with history of anxiety pain to the emergency department for evaluation for intermittent chest pain but concern for worsening anxiety. Patient states that she does take ice are eyes for her anxiety but states she did have a friend that suddenly last week and patient has had increased episodes of anxiety with chest tightness. Patient denies any current chest pain denies any shortness of breath. Patient is on control but denies any prior history of PE or DVT. Patient denies any calf tenderness. Patient denies any associated shortness of breath. Related Data Home Medications ?Medication ?Instructions ?Recorded ?Confirmed ?Last Taken ?Type multivitamin n-wpgebzni-snelgrj tablet PO 02/26/23 12/31/24 Unknown History fumarate 18 mg-vitamin K 25 mcg tablet ashwagandha extract 120 mg capsule mg PO 01/11/24 12/31/24 Unknown History fish, borage, flaxseed oils-omega cap PO 01/11/24 12/31/24 Unknown History 3,6,9 comb no.1 1,200 mg capsule (Clarksdale 3-6-9) pregnenolone .Route 01/11/24 12/31/24 Unknown History dim detox PO BID 02/16/24 12/31/24 Unknown History iodine ea miscellaneous 02/16/24 12/31/24 Unknown History levothyroxine 125 mcg tablet 125 mcg PO DAILY 12/31/24 12/31/24 Unknown History (Synthroid) Allergies Allergy/AdvReac Type Severity Reaction Status Date / Time erythromycin base AdvReac Mild Nausea Verified 01/10/25 14:56 amoxicillin AdvReac Unknown gets yeast Verified 01/10/25 14:56 infections PENDING SALE TO [facility] Past Medical History Medical History History of thyroid cancer Thyrotoxicosis with diffuse goiter without thyrotoxic crisis or storm Anxiety disorder Nontoxic multinodular goiter History of Thyroid nodule Depression Hemorrhoids Ovarian cyst Bronchitis Surgical History Surgical History H/O thyroidectomy H/O adenoidectomy H/O section Hx of tonsillectomy H/O myringotomy Family History Family History Mother Family history of malignant neoplasm of breast in first degree relative Cerebrovascular accident Family history of mental disorder Family history of glaucoma Grandparent Diabetes mellitus Family history of hypercholesterolemia Hypertension Family history of malignant neoplasm of uterus Family history of cardiovascular disease Family history of malignant neoplasm Family history of Alzheimer's disease Social History Social History Smoking status: Never smoker Smoking end date: 08/07/04 Alcohol intake: never Substance use: current Substance use type: marijuana Other substance usage details: maybe one time a year Course Vital Signs Vital signs: Vital Signs Temperature 97.6 F 01/10/25 15:19 Pulse Rate 70 01/10/25 15:19 Respiratory Rate 14 01/10/25 15:19 Blood Pressure 136/80 01/10/25 15:19 Pulse Oximetry 99 01/10/25 15:19 Temperature 97.6 F 01/10/25 15:19 Pulse Rate 66 01/10/25 15:19 Respiratory Rate 14 01/10/25 15:19 Blood Pressure 136/80 01/10/25 15:19 Pulse Oximetry 99 01/10/25 15:19 Medical Decision Making [facility] Narrative Medical decision making narrative: 39-year-old female presented to the emergency department for evaluation for intermittent chest pain. Patient is currently afebrile with no leukocytosis hemoglobin of 14.3. Patient had as an INR 0.9 Na D-dimer 0.41. Patient has no acute abnormalities her CMP TSH was normal. Patient had negative serial troponins. Chest x-ray shows no acute cardiopulmonary abnormality. EKG showed normal sinus rhythm. Patient was treated with 0.5 mg of IV Ativan and did feel improved with treatment. I do suspect a component patient's symptoms were secondary to anxiety. Differential Diagnosis Differential Diagnosis: Pulmonary embolism, pneumonia, anxiety, ACS, CAD, arrhythmia Vital Signs Vital Signs: Vital Signs Temperature 97.6 F 01/10/25 15:19 Pulse Rate 70 01/10/25 15:19 Respiratory Rate 14 01/10/25 15:19 Blood Pressure 136/80 01/10/25 15:19 Pulse Oximetry 99 01/10/25 15:19 Temperature 97.6 F 01/10/25 15:19 Pulse Rate 66 01/10/25 15:19 Respiratory Rate 14 01/10/25 15:19 Blood Pressure 136/80 01/10/25 15:19 Pulse Oximetry 99 01/10/25 15:19 Lab Data Lab results reviewed: Yes I reviewed the patient's lab results. 01/10/25 15:04 01/10/25 15:04 Labs: Lab Results 01/10/25 01/10/25 01/10/25 Range/Units 15:03 15:04 17:34 WBC 6.4 (4.5-10.0) K/mm3 RBC 4.92 (4.2-5.4) M/mm3 Hgb 14.3 (12.0-15.0) g/dL Hct 42.8 (37.0-47.0) % MCV 87.0 (80-100) fl MCH 29.1 (26-34) pg MCHC 33.4 (32-36) g/dl RDW 13.2 (11.5-14.5) % Plt Count 237 (150-375) k/mm3 MPV 10.4 (7.4-10.4) fl Immature Gran % (Auto) 0.2 (0-0.5) % Neut % (Auto) 57.6 (45.5-73.1) % Lymph % (Auto) 33.2 (18.3-44.2) % [place] % (Auto) 7.0 (2.6-8.5) % Eos % (Auto) 1.4 (0-4.4) % Baso % (Auto) 0.6 (0.2-1.2) % Lymph # (Auto) 2.13 (0.9-3.2) K/mm3 [place] # (Auto) 0.5 (0.1-0.6) K/mm3 Eos # (Auto) 0.1 (0-0.3) K/mm3 Baso # (Auto) 0.0 (0.0-0.1) K/mm3 Abs Immat Gran (auto) 0.01 (0.00-0.031) K/mm3 Absolute Neuts (auto) 3.7 (1.3-6.7) K/mm3 Absolute Nucleated RBC 0.000 (0.0-0.012) K/mm3 Nucleated RBC % 0.0 (0.0-0.2) % PT 12.8 (11.1-14.7) Seconds INR 0.9 APTT 23.8 (22.3-36.8) Seconds D-Dimer 0.41 (<0.48) ug/mL Sodium 137 (137-145) mmol/L Potassium 3.9 (3.4-5.0) mmol/L Chloride 104 (98-107) mmol/L Carbon Dioxide 23 (22-30) mmol/L Anion Gap 10 (4-12) mmol/L BUN 20 H (7-17) mg/dL Creatinine 0.88 (0.7-1.0) mg/dL Estim Creat Clear Calc Not Reportable Estimated GFR > 60 (59 - ) Glucose 87 (65-110) mg/dL Calcium 9.2 (8.4-10.2) mg/dL Total Bilirubin 0.3 (0.2-1.3) mg/dL AST 41 H (14-36) U/L ALT 25 (6-35) U/L Alkaline Phosphatase 38 (38-126) U/L Troponin I < 0.012 < 0.012 (0.000-0.034) ng/mL Total Protein 7.6 (6.3-8.2) g/dL Albumin 4.7 (3.5-5.1) g/dL Lipase 160 (23-300) U/L TSH (Reflex) 1.080 (0.465-4.68) uIU/mL Imaging Data Radiologist's impression: Impressions Chest X-Ray 01/10/25 15:24 IMPRESSION: 1: NO ACUTE CARDIOPULMONARY DISEASE. Discharge Plan Discharge Clinical Impression: Chest pain Patient Disposition: Home Condition: Stable Instructions: Antibiotic Form, Chest Pain (ED), Anxiety (ED) Additional Instructions: Have close follow-up with your primary care physician for additional outpatient cardiac testing. follow-up with your primary care physician for adjustment of your anxiety medications might also be beneficial. If you have any worsening symptoms then please call or return to the emergency department. Patient Language: Belarusian Prescriptions: No Action Adult Multivitamin with Iron 18 mg iron-25 mcg Tablet PO ashwagandha extract 120 mg capsule PO [place]dale 3-6-9 1,200 mg capsule PO pregnenolone 30 mg capsule .Route Rx Instructions: take as directed levothyroxine [Synthroid] 125 mcg tablet 125 mcg PO DAILY dim detox PO BID iodine Liquid miscellaneous sertraline 50 mg tablet 150 mg PO DAILY Qty: 90 1RF Follow-up/Referrals: Kecia Ruiz MD [Primary Care Provider] - Quality HEART score for chest pain patients History: slightly suspicious ECG: normal Age: < or = to 45 years Risk factors: 1 or 2 risk factors Troponin: < or = to 1x normal limit Heart score: 1
[2025-01-10 15:28] LABS: Alanine Aminotransferase 25 U/L (6-35); Albumin Level 4.7 g/dL (3.5-5.1); Alkaline Phosphatase 38 U/L (38-126); Anion Gap 10 mmol/L (4-12); Aspartate Amino Transferase 41 U/L (14-36); Bilirubin,Total 0.3 mg/dL (0.2-1.3); Blood Urea Nitrogen 20 mg/dL (7-17); Calcium 9.2 mg/dL (8.4-10.2); Carbon Dioxide 23 mmol/L (22-30); Chloride 104 mmol/L (98-107); Estimated Glomerular Filt Rate > 60; Glucose 87 mg/dL (65-110); Lipase 160 U/L (23-300); Potassium 3.9 mmol/L (3.4-5.0); Sodium 137 mmol/L (137-145); Total Protein 7.6 g/dL (6.3-8.2)
[2025-01-10] MEDS: LORazepam INJ (*CRX) 2 MG/ML VIAL 0.5 MG IV PUSH (15:28)
[2025-01-10] MEDS: ASPIRIN 81 MG CHEWABLE TABLET 324 MG PO (15:29)
[2025-01-10 15:30] LABS: INR 0.9; Prothrombin Time 12.8 Seconds (11.1-14.7)
[2025-01-10 15:31] LABS: Partial Thromboplastin Time 23.8 Seconds (22.3-36.8)
[2025-01-10 15:36] LABS: D Dimer 0.41 ug/mL (<0.48)
[2025-01-10 15:40] LABS: Troponin I < 0.012 ng/mL (0.000-0.034)
--- NOTE | 2025-01-10 17:25 | ECG_ITS ---
Test Date: 2025-01-10 17:50:46 Measurements Intervals [place] Rate: 63 P: 51 MT: 145 QRS: 34 QRSD: 82 T: 43 QT: 409 QTc: 422 Interpretive Statements SINUS RHYTHM BASELINE ARTIFACT- I, II, AVR, AVL, AVF NORMAL ECG Compared to ECG 01/10/2025 14:50:55 No significant changes Electronically Signed On 01-10-2025 19:10:48 CDT by Daniel Pritchett D.O.
[2025-01-10 18:04] LABS: Troponin I < 0.012 ng/mL (0.000-0.034)
== END 2025-01-10 18:37 | disposition home or self-care (01) ==
PROVIDERS: Emergency Medicine; Emergency Provider Emergency Medicine; PCP Family Medicine
DX: R07.9 Chest pain, unspecified (principal); E89.0 Postprocedural hypothyroidism; F41.9 Anxiety disorder, unspecified; F32.A Depression, unspecified; Z85.850 Personal history of malignant neoplasm of thyroid; Z87.891 Personal history of nicotine dependence; Z79.899 Other long term (current) drug therapy
CPT/HCPCS: 36415; 71046; 80053; 83690; 84443; 84484; 85025; 85380; 85610; 85730; 93005; 96374; 99284; A9270; J2060

== ENCOUNTER 2025-03-05 08:04 | Outpatient (CLI) | payer OTHER, SELFPAY ==
--- NOTE | ~2025-03-05 | US_ITS ---
Pelvic ultrasound. Clinical History: Excessive and frequent menstruation Technique: Realtime transabdominal and transvaginal scanning of the pelvis was performed. Color flow Doppler and Doppler spectral analysis were performed. Findings: The uterus is anteverted. The endometrial stripe has a thickness of 12 mm. No focal mass i s identified. The left ovary measures 2.4 x 2.5 x 2.2 cm. Left ovarian corpus luteal cyst is seen. The right ovary is not visualized. No significant right ovarian or adnexal mass is seen. There is small amount of free fluid in the cul de sac. Impression: No significant abnormality seen. Reviewed, dictated and finalized at location . Impression: No significant abnormality seen.
== END 2025-03-05 08:05 | disposition home or self-care (01) ==
LOC: GOSHIMG 08:05
PROVIDERS: PCP Nurse Practitioner Obstetrics & Gynecology; Visit Provider Nurse Practitioner Obstetrics & Gynecology
DX: N92.0 Excessive and frequent menstruation with regular cycle (principal)
CPT/HCPCS: 76830; 76856

== ENCOUNTER 2025-05-28 01:20 | Day surgery (SDC) | payer OTHER, SELFPAY ==
--- NOTE | 2025-05-21 13:53 | PC.NURSE ---
[facility] has started construction of its new state of the art ER which will open Spring 2026. With this, we anticipate parking may be a challenge for some our surgical patients and families. Parking spaces are limited but are available for all Surgical, obstetrics, and ER patients sharing this lot. If you arrive and find you are having a hard time finding a parking space, please note that we understand the challenges, please drive around the hospital and park near Hospital Entrance 1. When you enter this entrance, you can ask a volunteer to direct or take you back to the surgical waiting area to check in. We appreciate everyone?s understanding of these expected challenges while we build for your future. Report to the Outpatient Waiting Room, entrance under the green pavilion located off [address], at time 0830 on date 05/28/25. Planned Procedure Time:1030.? Time changes happen often and if your time is changed the preop area will call you the afternoon before. - You and your visitor will be asked to self-screen and do not enter if you have any COVID symptoms. Please call surgeon if you need to reschedule. - A mask is optional within the hospital at this time. Patients may have clear liquids (water, carbonated beverages, clear teas, apple juice) until 3 hours prior to surgery with a maximum of 20 ounces. 0730 - No food from midnight until time of surgery and no smoking, or chewing tobacco (or any form of nicotine). No chewing gum, candy or mints. - Infants may have breast milk until 4 hours before surgery, formula 6 hours prior to surgery. - Children will be allowed to drink immediately following surgery.? If applicable, please bring a bottle or sippy cup to assist with drinking. Juice, water, soda, and popsicles are readily available.? For infants on formula, please bring formula the day of surgery.? Pacifiers are allowed. Take only the following medications with a SIP of water on the morning of surgery: synthroid DO NOT STOP ANY OF YOUR OTHER PRESCRIPTION MEDICATIONS PRIOR TO SURGERY EXCEPT THE FOLLOWING Hold all vitamins and supplements for 3 days per anesthesiologist. Medications to discontinue per physician vitamins and supplements Date to take last dose 05/25/22 Please no make-up, nail peruvian, hairspray, perfume, deodorant, or body powder the day of surgery.? No jewelry (including any body piercings) or valuables the day of surgery, leave them at home.? Please take a shower or bath the night before, or the morning of, surgery with an antibacterial soap.? Wear comfortable, loose fitting clothing.? Children are encouraged to wear pajamas. - Jewelry must be removed prior to entering the operating room.? Rings and piercings that are not removed may be cut off. - The hospital will not accept responsibility for valuables.? - Please leave all valuables, including medications, at home the day of surgery. If you are going home after surgery, a licensed tow car driver must drive you home.? - NO public transportation without another adult if you receive anesthesia. - We recommend that an adult stay with you for 24 hours following discharge. - We also recommend that you do not drive, make important decision, drink alcoholic beverages, or take any drugs that were not prescribed by your health care provider for at least 24 hours after your discharge time. For Pediatric surgeries, we recommend two adults accompany the child home. Follow any additional instructions given to you from your surgeon. Telephone instructions given to Patient- Lynn Connell and asked if any additional questions and then verbalized understanding. Patient advised to call surgeon office or pre surgery nurse liaison [phone] if any additional questions.
[2025-05-21 13:58] VITALS: BMI 27.1
--- OUTSIDE RECORDS SUMMARY | 2025-05-28 01:23 | XMS_ITS | Encounter Summary ---
Author Organization [facility] Address [address] [place] [address] Phone Care Team Providers Care Buttoner Name Role Phone Kecia Ruiz MD Primary Care Provider + Encounter Details Date Type Department Care Team (Late st Contact Info) Description 04/09/2025 Results Follow-Up [facility] Endocrinology Metabolism and Lipid [address] 13th [place] [address] [place] [address] Yesica Moe MD [address] [place] [address] [place] Thyroid Social History Tobacco Use Types Packs/Day Years Used Date Smoking Tobacco: Never Smokeless Tobacco: Never Alcohol Use Standard Drinks/Week Comments Yes 4 (1 standard drink = 0.6 oz pur e alcohol) Comments No Sex and Gender Information Value Date Recorded Sex Assigned at Not on file Legal Sex Female 8:53 PM SOCIAL SERVICES COORDINATOR Gender Identity Female 01/15/2020 5:52 PM CDT Sexual Orientation Straight 01/15/2020 5: 52 PM CDT documented as of this encounter Plan of Treatment Not on file documented as of this encounter Visit Diagnoses Not on filedocumented in this encounter Care Teams Buttoner Relationship Specialty Start Date End Date Kecia Ruiz MD PCP - General Family Medicine 05/08/18 documented as of this encounter
[2025-05-28 08:30] VITALS: BP 100/64; PULSE 73; RESP 16; TEMP 36.5; O2SAT 100
[2025-05-28] MEDS: ACETAMINOPHEN 500 MG TABLET 1000 MG PO (08:45)
[2025-05-28] MEDS: LACTATED RINGERS 1,000 ML 30 ML IV CONT (08:55)
--- NOTE | 2025-05-28 09:17 | WPDHPUPDATE1 ---
History and Physical Update Update Date/Time: 05/28/25 09:17 History and Physical has been reviewed, including an updated exam of the patient. There are NO changes in the patient's condition. Risks, benefits, and alternatives have been discussed and questions answered. Patient agrees to proceed with procedure.
--- NOTE | 2025-05-28 09:45 | P.PNAN_ITS ---
Anes - Initial Pre Proc Eval Procedure: Operation Date: 05/28/25 10:30 Proposed Procedures p Hysteroscopy Dilation and Curettage with Removal of any Endometrial Lesions if Needed, Removal Cervical Polyp, Kika Endometrial Ablation - Bill Devi MD Date/Time: 05/28/25 09:45 Surgeon: Bill Devi MD Pre Op Diagnosis: Menorrhagia Patient Data Age: 40 Gender: F Height: 1.6 m Weight: 70.25 kg Last Vital Signs Temp 36.5 C 05/28/25 08:30 Pulse 73 05/28/25 08:30 Resp 16 05/28/25 08:30 BP 100/64 05/28/25 08:30 Pulse Ox 100 05/28/25 08:30 O2 Del Method Room Air 05/28/25 08:30 Allergies Allergy/AdvReac Type Severity Reaction Status Date / Time erythromycin base AdvReac Mild Nausea Verified 05/28/25 08:57 amoxicillin AdvReac Unknown gets yeast Verified 05/28/25 08:57 infections Home Medications ?Medication ?Instructions ?Recorded ?Confirmed ?Type multivitamin h-cvwwsqlt-duyiyuc 1 tablet PO DAILY 02/0505/28/25 History fumarate 18 mg-vitamin K 25 mcg tablet levothyroxine 125 mcg tablet 125 mcg PO DAILY 12/31/24 05/28/25 History (Synthroid) sertraline 50 mg tablet 25 mg PO HS 05/21/25 5 History Patient hx anesthesia problems: none Family hx anesthesia problems: none Results Review: All pre-operative results and documents have been reviewed as part of the pre- operative evaluation. [facility] Past Medical History Medical History History of thyroid cancer Thyrotoxicosis with diffuse goiter without thyrotoxic crisis or storm Anxiety disorder Nontoxic multinodular goiter History of Thyroid nodule Depression Hemorrhoids Ovarian cyst Bronchitis Surgical History Surgical History H/O thyroidectomy H/O adenoidectomy H/O section Hx of tonsillectomy H/O myringotomy Family History Family History Mother Family history of malignant neoplasm of breast in first degree relative Cerebrovascular accident Family history of mental disorder Family history of glaucoma Grandparent Diabetes mellitus Family history of hypercholesterolemia Hypertension Family history of malignant neoplasm of uterus Family history of cardiovascular disease Family history of malignant neoplasm Family history of Alzheimer's disease Social History Social History (Updated 05/28/25 @ 09:46 by Jone Noble MD) Smoking status: Former smoker Smoking end date: 08/07/04 Alcohol intake: never Substance use: current Substance use type: marijuana Other substance usage details: maybe one time a year Anes - Eval Final PreProcedure Day of Procedure 05/28/25 09:45 Patient weight: overweight Heart: regular rate and rhythm Lungs: clear to auscultation Airway: Mallampati scale class II Neurological: alert and oriented Last oral intake: >/= 8 hours ASA classification: II Emergent: no Anesthetic plan: proceed Anesthesia type and monitoring: general GIVS and standard monitoring Results Review: All pre-operative results and documents have been reviewed as part of the pre- operative evaluation. Informed Consent: The patient's anesthetic plan and its attendant risks and benefits were discussed with the patient/family/POA. Questions were solicited and answers provided to the satisfaction of the patient/family/POA.
[2025-05-28] MEDS: ceFAZolin 2 GM in SODIUM CHLORIDE 0.9% IV 50 ML 100 ML IVPB (10:04)
[2025-05-28] MEDS: LIDOCAINE 1% LOCAL INJ 10 ML VIAL 8 ML INFILTRATE (10:04)
[2025-05-28 10:20] LABS: BEDSIDEPREGUCG Negative (Negative)
--- NOTE | 2025-05-28 10:24 | S_PTH ---
PATIENT: Lynn Connell LOC: [facility] U#:[id number] AGE/SX: 40/F ROOM: RE05/28/[address]: Bill Devi MD : 1985 BED: DIS: 05/28/2025 SPEC #: [id number] RECD: 05/28/25 12:37 STATUS: ANUJA REQ #: [id number] STELLA: 05/28/25 10:[address]: Bill Devi DEPT: [facility] Surgical RECD BY: Juan Castro ENTERED: 05/28/25 12:38 SP TYPE: Surgical OTHR DR: Kecia Ruiz MD Tissues: A - Endometrial Curettings Procedures: Hematoxylin and Eosin Stain Gross and Microscopic Level 4
[2025-05-28] MEDS: FERRIC SUBSULFATE 8 ML SOLUTION WITH APPLICATOR TOPICAL (10:30)
[2025-05-28] MEDS: KETOROLAC 30 MG/ML VIAL (*BKC) IV PUSH (10:30)
[2025-05-28 10:39] VITALS: BP 95/58; PULSE 54; RESP 14; O2SAT 100
--- NOTE | 2025-05-28 10:49 | W.PM.PROC2 ---
Procedure Note - Detailed Date of Procedure 05/28/25 Pre-op Diagnosis Menorrhagia , cervical polyp Post-op Diagnosis Same Procedure Performed 1. Kika endometrial ablation 2. hysteroscopy with dilation and curettage 3. Cervical polypectomy Surgeon Bill Devi MD Anesthesia MAC and Local Indications menorrhagia cervical polyp on exam Findings uterus sound to 8.5 cm cervical length 4.5 cm uterine length 4 cm uterine cavity was normal there was endometrial polyp at the external os and appeared to originate from the upper cervix Description of Procedure After informed consent was obtained patient was taken to the operating room and adequate IV sedation was administered. Attention was turned to the vagina. Speculum was inserted. Single-tooth tenaculum placed on the anterior lip of the cervix. 8 cc of 1% lidocaine was injected at the cervical vaginal interface at the 2 and 5 and 8 and 10 position. The uterus was sounded to 8.5 cm. The cervix was dilated to an 8 Farr dilator. The cervical length was 4.5 . Cervical polyp was removed in sections. The hysteroscope was inserted into the cavity. The findings were a normal uterine cavity, possible polyp originating from upper cervix. The hysteroscope was removed. A curettage was performed. Polypoid tissue obtained. The Kika ablation instrument was inserted into the cavity. Cavity assessment was performed and confirmed intact. The ablation was enabled. After 120 seconds the Kika stopped. The ablation instrument was removed. The hysteroscope was inserted and there was noted to be good eschar with the cavity. The hysteroscope was removed the single-tooth tenaculum was removed hemostasis was noted at the tenaculum site. Sponge count correct. The patient taken to recovery in stable condition. Estimated Blood Loss 5 Drains No Packing No Pathology Yes (curettage and cervical polyp) Complications No immediate complications Condition Stable Disposition Same day [facility] Billing Surgery - Charge Forward: Surgery Billing
[2025-05-28 11:10] VITALS: BP 108/63; PULSE 62; RESP 16
[2025-05-28] MEDS: oxyCODONE HCL (*CRX) 5 MG TAB IR PO (11:23)
[2025-05-28 11:40] VITALS: BP 104/44; PULSE 65; RESP 16
[2025-05-28] MEDS: ONDANSETRON INJ 4 MG/2 ML VIAL IV PUSH (11:53)
[2025-05-28 12:09] VITALS: BP 99/58; PULSE 53; RESP 16
[2025-05-28 12:15] VITALS: BP 94/64; PULSE 54; RESP 16
== END 2025-05-28 12:25 | disposition home or self-care (01) ==
PROVIDERS: PCP Family Medicine; Visit Provider Obstetrics & Gynecology
PROC: 0U5B8ZZ Destruction of Endometrium, Via Natural or Artificial Opening Endoscopic (ICD-10-PCS; CPT 58563; principal; 2025-05-28 10:30)
DX: N92.0 Excessive and frequent menstruation with regular cycle (principal); N84.1 Polyp of cervix uteri
CPT/HCPCS: 58563; 88305; J0690; A9270; J1885; J2003; J2250; J2405; J2704; J3010; J7120